=== PATIENT | male | born 1985 | race Caucasian/White ===

== ENCOUNTER 2019-08-25 14:27 | Emergency (ER) | payer BC, SELFPAY ==
[2019-08-25 14:57] VITALS: BP 139/91; PULSE 86; RESP 19; TEMP 36.8; O2SAT 98; BMI 24.9
--- NOTE | 2019-08-25 15:07 | HMH.EDUTC ---
[facility] [place]: Otitis media Qualifiers: Otitis media type: unspecified Laterality: left Qualified Code(s): H66.92 - Otitis media, unspecified, left ear Disposition: Home, Self-Care Condition on Discharge: Good Instructions: Middle Ear Infection, Middle Ear Infections (Alternative Therapy), Amoxicillin Additional Instructions: *Monitor Temp, Over the counter Motrin or Tylenol as directed/as needed Tylenol every 4 hours and Motrin every 6 hours (as long as your family doctor has told you that you can take it) for fever or pain. and straight to ER if unable to lower temp less than 101.0 after medication given Take medication as prescribed *Warm fluids like tea with honey may help to soothe the throat *Sleep elevated *Humidifier/Vaporizer Follow up with family doctor if no improvement or any worsening of symptoms Return if needed Follow up IMMEDIATELY for new or worsening symptoms or no Noticeable improvement over the next 48-72 hours. 911 for difficulty breathing or swallowing Prescriptions: Amoxicillin [Amoxicillin 500mg Cap] 500 mg PO TID #30 cap Transmission Status: Pending to [id number] Referrals: Provider,Referral, [Primary Care Provider] - As needed Forms: Work/School Release Medical Decision Making - Matthew Inquiry Pt receiving controlled substance: No Matthew was queried for this patient: No Vital Signs: 08/25/19 14:57 Temperature 98.2 F Temperature Source Oral Pulse Rate [Right Brachial] 86 Respiratory Rate 19 Blood Pressure [Right Arm] 139/91 H Blood Pressure Mean [Right Arm] 107 Blood Pressure Source [Right Arm] Automatic Cuff Blood Pressure Position [Right Arm] Sitting 02 Sat by Pulse Oximetry 98 - Reevaluation(s) Time: 15:10 Reevaluation #1: Patient states that he is allergic to Keflex but is able to take amoxicillin without reactions or complications [facility] [place] - General Stated complaint: vomiting and ear ACHE Time Seen by Provider: 08/25/19 15:07 Mode of Arrival: Ambulatory Source of Information: Patient Limitations: No Limitations Description of Symptoms (Recalled from Triage Doc. by RN): PATIENT C/O LEFT EAR HURTING AND VOMITING SINCE THIS MORNING HEENT Symptoms (Recalled from RN notes): Yes Resp Symptoms (Recalled from RN notes): No Skin Symptoms (Recalled from RN notes): No MS Symptoms (Recalled from RN notes): No Functional Status (Recalled from RN notes): WNL - History of Present Illness Provider Complaint: Patient states that he has been having pain in his left ear for about a week States that this morning he eat that made his stomach upset and he vomited and they sent him home from work State that his nausea is much better and not had any vomiting since the eppisode this morning but still having pain in his left ear - Related Data Previous Rx's Medication Instructions Recorded oseltamivir 75 mg capsule 75 mg PO DAILY 5 Days #5 cap 05/11/19 Amoxicillin [Amoxicillin 500mg 500 mg PO TID #30 cap 08/25/19 Cap] Allergies Allergy/AdvReac Type Severity Reaction Status Date / Time sulfamethoxazole Allergy Verified 05/11/19 12:08 [From Bactrim] trimethoprim [From Bactrim] Allergy Verified 05/11/19 12:08 From KEFLEX Allergy Mild I-RASH Uncoded 02/16/17 15:01 MORPHINE Allergy Unknown MAKES ME Uncoded 02/16/17 15:01 QUIT BREATHING - Worker's Comp Is this a Worker's Comp case?: No [facility] History - Hepatitis A Screen Drug use history?: No High risk sexual behaviors?: No History of sexually transmitted infection?: No Currently employed?: No Childcare worker?: No Do you have indoor plumbing?: Yes Do you have electricity?: Yes Attestation statement:: This patient has been screened for Hepatitis A risk factors. I have reviewed the patient's past medical history: Yes Other Medical History: Reports: Cataracts (right traumatic eye injury paintball accident age 22) Other Surgeries: Yes: No Previous
[2019-08-25 15:12] VITALS: BP 139/91; PULSE 86; RESP 19; TEMP 36.8; O2SAT 98
== END 2019-08-25 15:15 | disposition home or self-care (01) ==
PROVIDERS: Emergency Provider Nurse Practitioner
DX: H66.92 Otitis media, unspecified, left ear (principal); F17.210 Nicotine dependence, cigarettes, uncomplicated; Z88.2 Allergy status to sulfonamides
CPT/HCPCS: 99201

== ENCOUNTER 2019-11-28 10:09 | Emergency (ER) | payer BC, SELFPAY ==
[2019-11-28 10:39] VITALS: BP 135/85; PULSE 70; RESP 18; TEMP 36.6; O2SAT 98; BMI 29.0
--- NOTE | 2019-11-28 11:11 | HMH.EDUTC ---
[facility] [place]: Encounter for laboratory testing for COVID-19 virus Disposition: Home, Self-Care Condition on Discharge: Good Instructions: Preventing the Spread of Coronavirus Discharge Instructions Additional Instructions: You was tested for today for COVID19 your test result should be back within the next 2-4 hours, call back to the [facility] to see if your test results are back and the result You was given a handout with instructions for Self Quarantine and Self isolation for while you wait on test results and what to do if they are positive Return if needed Straight to ER if any life threatening symptoms Follow up as needed Referrals: PCP,No [Primary Care Provider] - As needed Forms: Work/School Release Time of Disposition: 11:17 Medical Decision Making - Matthew Inquiry Pt receiving controlled substance: No Matthew was queried for this patient: No Vital Signs: 11/28/19 10:39 Temperature 97.9 F Temperature Source Oral Pulse Rate [Right Brachial] 70 Respiratory Rate 18 Blood Pressure [Right Arm] 135/85 Blood Pressure Mean [Right Arm] 101 Blood Pressure Source [Right Arm] Automatic Cuff Blood Pressure Position [Right Arm] Sitting 02 Sat by Pulse Oximetry 98 Oxygen Delivery Method Room Air Orders (Tests/Meds): ORDERS Category Date Time Status Covid-19 Nasal PCR ([facility]) Routine Lab 11/28/19 10:20 [place] [facility] [place] - General Stated complaint: exposed to covid Time Seen by Provider: 11/28/19 11:11 Mode of Arrival: Ambulatory Source of Information: Patient Limitations: No Limitations Description of Symptoms (Recalled from Triage Doc. by RN): PATIENT NEEDING COVID TEST AFTER BEING EXPOSED LAST WEEK TO COWORKER WHO TESTED POSITIVE; DENIES SYMPTOMS HEENT Symptoms (Recalled from RN notes): No Resp Symptoms (Recalled from RN notes): No Skin Symptoms (Recalled from RN notes): No MS Symptoms (Recalled from RN notes): No Functional Status (Recalled from RN notes): WNL - History of Present Illness Provider Complaint: Patient states that he worked in close proxemity with an employee that tested positive for COVID 19 States that his employer wanted him to come and get checked for COVID Denies any symptoms - Related Data Previous Rx's Medication Instructions Recorded oseltamivir 75 mg capsule 75 mg PO DAILY 5 Days #5 cap 05/11/19 Amoxicillin [Amoxicillin 500mg 500 mg PO TID #30 cap 08/25/19 Cap] Allergies Allergy/AdvReac Type Severity Reaction Status Date / Time cephalexin [From Keflex] Allergy Verified 11/28/19 10:46 morphine Allergy Verified 11/28/19 10:46 sulfamethoxazole Allergy Verified 05/11/19 12:08 [From Bactrim] trimethoprim [From Bactrim] Allergy Verified 05/11/19 12:08 - Worker's Comp Is this a Worker's Comp case?: No [facility] History - Hepatitis A Screen Drug use history?: No High risk sexual behaviors?: No History of sexually transmitted infection?: No Currently employed?: No Childcare worker?: No Do you have indoor plumbing?: Yes Do you have electricity?: Yes Attestation statement:: This patient has been screened for Hepatitis A risk factors. I have reviewed the patient's past medical history: Yes Other Medical History: Reports: Cataracts (right traumatic eye injury paintball accident age 22) Other Surgeries: Yes: No Previous Surgery Amputation: No Fractures: No - Social History Smoking Status: Current every day smoker Tobacco Type: cigarettes # Packs/Day (cigarettes): 1 #Yrs smoked (if former smoker): 6 Alcohol Intake: never Alcohol Intake Frequency:: holidays/special occasions only Occupational Status: other Housing: house Household Members: spouse, family Family Hx:: Hypertension ROS Obtained: Yes All systems reviewed & no additional complaints, Yes Systems reviewed as appropriate & no additional complaints - Constitutional Constitutional: Reports system reviewed and no additional complaints, except as docu, Denies body ache
[2019-11-28 11:18] VITALS: BP 135/85; PULSE 70; RESP 18; TEMP 36.6; O2SAT 98
== END 2019-11-28 11:20 | disposition home or self-care (01) ==
PROVIDERS: Emergency Provider Nurse Practitioner
DX: Z20.828 Contact with and (suspected) exposure to other viral communicable diseases (principal); Z88.5 Allergy status to narcotic agent; Z88.2 Allergy status to sulfonamides; F17.210 Nicotine dependence, cigarettes, uncomplicated
CPT/HCPCS: 99201; U0003

== ENCOUNTER 2020-04-03 09:45 | Emergency (ER) | payer BC, SELFPAY ==
[2020-04-03 09:52] VITALS: BP 141/73; PULSE 71; RESP 16; TEMP 36.7; O2SAT 100; BMI 29.0
--- NOTE | 2020-04-03 10:08 | HMH.EDUTC ---
[facility] [place]: Exposure to COVID-19 virus Disposition: Home, Self-Care Condition on Discharge: Good Instructions: Preventing the Spread of Coronavirus Discharge Instructions Additional Instructions: Drink plenty of fluids. Take tylenol for pain or fever. Return if you begin to have difficulty breathing. Follow up with your regular doctor. GO TO THE ER FOR ANY WORSENING SYMPTOMS Referrals: PCP,No [Primary Care Provider] - Time of Disposition: 10:16 Medical Decision Making - Medical Records Medical records reviewed: No: I reviewed the patient's medical records. - Matthew Inquiry Pt receiving controlled substance: No Vital Signs: 04/03/20 09:52 04/03/20 10:26 Temperature 98.1 F 98.0 F Temperature Source Oral Oral Pulse Rate 77 Pulse Rate [Left] 71 Respiratory Rate 16 16 Blood Pressure 131/71 Blood Pressure [Right Arm] 141/73 H Blood Pressure Mean [Right Arm] 95 Blood Pressure Source Automatic Cuff Blood Pressure Source [Right Arm] Automatic Cuff Blood Pressure Position Supine Blood Pressure Position [Right Arm] Sitting 02 Sat by Pulse Oximetry 100 Oxygen Delivery Method Room Air Orders (Tests/Meds): ORDERS Category Date Time Status Covid-19 Nasal PCR ([facility]) Routine Lab 04/03/20 09:50 [place] [facility] - General Stated complaint: covid exposure Time Seen by Provider: 04/03/20 10:08 Mode of Arrival: Ambulatory Source of Information: Patient Limitations: No Limitations Description of Symptoms (Recalled from Triage Doc. by RN): pts was directly exposed to a covid positive pt on wednesday. the has been tested negative as of this time. pts only symptom is a runny nose. HEENT Symptoms (Recalled from RN notes): No Resp Symptoms (Recalled from RN notes): Yes (nasal drainage.) Skin Symptoms (Recalled from RN notes): No MS Symptoms (Recalled from RN notes): No Functional Status (Recalled from RN notes): na - History of Present Illness Provider Complaint: His currently is under quarentine for covid exposure. He needs to be tested for his work also. He denies any symptoms so far. - Related Data Previous Rx's Medication Instructions Recorded oseltamivir 75 mg capsule 75 mg PO DAILY 5 Days #5 cap 05/11/19 Amoxicillin [Amoxicillin 500mg 500 mg PO TID #30 cap 08/25/19 Cap] Allergies Allergy/AdvReac Type Severity Reaction Status Date / Time cephalexin [From Keflex] Allergy Verified 04/03/20 09:57 morphine Allergy Verified 04/03/20 09:57 sulfamethoxazole Allergy Verified 04/03/20 09:57 [From Bactrim] trimethoprim [From Bactrim] Allergy Verified 04/03/20 09:57 - Worker's Comp Is this a Worker's Comp case?: No H History - Hepatitis A Screen Drug use history?: No High risk sexual behaviors?: No History of sexually transmitted infection?: No Currently employed?: No Childcare worker?: No Do you have indoor plumbing?: Yes Do you have electricity?: Yes Attestation statement:: This patient has been screened for Hepatitis A risk factors. I have reviewed the patient's past medical history: Yes Other Medical History: Reports: Cataracts (right traumatic eye injury paintball accident age 22) Other Surgeries: Yes: No Previous Surgery Amputation: No Fractures: No - Social History Smoking Status: Current every day smoker Tobacco Type: cigarettes, smokeless tobacco # Packs/Day (cigarettes): 2 #Yrs smoked (if former smoker): 6 Alcohol Intake: never Alcohol Intake Frequency:: holidays/special occasions only Occupational Status: employed Housing: house Household Members: spouse, family Family Hx:: Hypertension ROS Obtained: Yes All systems reviewed & no additional complaints - Constitutional Constitutional: Reports system reviewed and no additional complaints, except as docu - Eyes Eyes: Reports system reviewed and no additional complaints, except as docu - ENT Ears, Nose, Mouth, and Throat: Reports
[2020-04-03 10:26] VITALS: BP 131/71; PULSE 77; RESP 16; TEMP 36.7
== END 2020-04-03 10:26 | disposition home or self-care (01) ==
PROVIDERS: Emergency Provider Nurse Practitioner Family
DX: Z20.822 Contact with and (suspected) exposure to COVID-19 (principal); R09.89 Other specified symptoms and signs involving the circulatory and respiratory systems
CPT/HCPCS: 99202; G0463; U0003

== ENCOUNTER 2020-11-09 09:40 | Emergency (ER) | payer BC, SELFPAY ==
[2020-11-09 10:19] VITALS: PULSE 68; RESP 18; TEMP 36.8; O2SAT 98; BMI 28.2
[2020-11-09 10:27] VITALS: BP 129/79; PULSE 68; RESP 16; TEMP 36.8
--- NOTE | 2020-11-09 10:41 | HMH.EDUTC ---
[facility] [place] Clinical Impression: Exposure to COVID-19 virus Disposition: Home, Self-Care Condition on Discharge: Good Instructions: DI for COVID-19 (Suspected or Confirmed ), Preventing the Spread of Coronavirus Discharge Instructions Additional Instructions: Drink plenty of fluids. Take tylenol for pain or fever. Return if you begin to have difficulty breathing. Follow up with your regular doctor. GO TO THE ER FOR ANY WORSENING SYMPTOMS Quarantine until you know the results of your covid-19 test. If it is positive, the health department should call you and give you further instructions about your length of Quarantine and other things. Notify your school or workplace of your results and follow their instructions regarding return to work/school. Referrals: Provider,Referral, [Primary Care Provider] - Time of Disposition: 10:42 Medical Decision Making - Medical Records Medical records reviewed: No: I reviewed the patient's medical records. - Matthew Inquiry Pt receiving controlled substance: No Vital Signs: 11/09/20 10:19 11/09/20 10:27 Temperature 98.2 F 98.2 F Temperature Source Oral Pulse Rate 68 Pulse Rate [Left] 68 Respiratory Rate 18 16 Blood Pressure 129/79 02 Sat by Pulse Oximetry 98 [facility] [place] HPI - General Stated complaint: covid test Time Seen by Provider: 11/09/20 10:41 Mode of Arrival: Ambulatory Source of Information: Patient Limitations: No Limitations Description of Symptoms (Recalled from Triage Doc. by RN): covid test. exposed. asymptomatic. HEENT Symptoms (Recalled from RN notes): No Resp Symptoms (Recalled from RN notes): No Skin Symptoms (Recalled from RN notes): No MS Symptoms (Recalled from RN notes): No Functional Status (Recalled from RN notes): na - History of Present Illness Provider Complaint: He states that he was exposed to covid-19 around 4 days ago. He denies symptoms so far. - Related Data Previous Rx's Medication Instructions Recorded oseltamivir 75 mg capsule 75 mg PO DAILY 5 Days #5 cap 05/11/19 Amoxicillin [Amoxicillin 500mg 500 mg PO TID #30 cap 08/25/19 Cap] Allergies Allergy/AdvReac Type Severity Reaction Status Date / Time cephalexin [From Keflex] Allergy Verified 04/03/20 09:57 morphine Allergy Verified 04/03/20 09:57 sulfamethoxazole Allergy Verified 02/03/21 09:57 [From Bactrim] trimethoprim [From Bactrim] Allergy Verified 04/03/20 09:57 - Worker's Comp Is this a Worker's Comp case?: No [facility] History - Hepatitis A Screen Drug use history?: No High risk sexual behaviors?: No History of sexually transmitted infection?: No Currently employed?: No Childcare worker?: No Do you have indoor plumbing?: Yes Do you have electricity?: Yes Attestation statement:: This patient has been screened for Hepatitis A risk factors. I have reviewed the patient's past medical history: Yes Other Medical History: Reports: Cataracts (right traumatic eye injury paintball accident age 22) Other Surgeries: Yes: No Previous Surgery Amputation: No Fractures: No - Social History Smoking Status: Current every day smoker Tobacco Type: cigarettes, smokeless tobacco # Packs/Day (cigarettes): 2 #Yrs smoked (if former smoker): 6 Alcohol Intake: never Alcohol Intake Frequency:: holidays/special occasions only Occupational Status: employed Housing: house Household Members: spouse, family Family Hx:: Hypertension ROS Obtained: Yes All systems reviewed & no additional complaints - Constitutional Constitutional: Reports system reviewed and no additional complaints, except as docu - Eyes Eyes: Reports system reviewed and no additional complaints, except as docu - ENT Ears, Nose, Mouth, and Throat: Reports system reviewed and no additional complaints, except as docu - Cardiovascular Cardiovascular: Reports system reviewed and no additional complaints, except as docu - Respiratory Respiratory: Reports syst
== END 2020-11-09 10:46 | disposition home or self-care (01) ==
PROVIDERS: Emergency Provider Nurse Practitioner Family
DX: Z20.822 Contact with and (suspected) exposure to COVID-19 (principal); F17.210 Nicotine dependence, cigarettes, uncomplicated
CPT/HCPCS: 99202; C9803; G0463; U0003; U0005

== ENCOUNTER 2021-04-07 14:57 | Emergency (ER) | payer BC, SELFPAY ==
[2021-04-07 16:30] VITALS: BP 127/94; PULSE 65; RESP 18; TEMP 37.2; O2SAT 97; BMI 26.6
--- NOTE | 2021-04-07 16:41 | HMH.EDUTC ---
[facility] [place] Clinical Impression: Viral syndrome Pharyngitis Qualifiers: Pharyngitis/tonsillitis etiology: unspecified etiology Qualified Code(s): J02.9 - Acute pharyngitis, unspecified Disposition: Home, Self-Care Condition on Discharge: Good Instructions: Strep Throat, DI for Pharyngitis/Tonsillopharyngitis -- Adult, Ondansetron, DI for COVID-19 (Suspected or Confirmed ), Preventing the Spread of Coronavirus Discharge Instructions Additional Instructions: Drink plenty of fluids. Take tylenol or ibuprofen for pain or fever. Take the medications as directed. Follow up with your regular doctor. GO TO THE ER FOR ANY WORSENING SYMPTOMS Quarantine until you know the results of your covid-19 test. Notify your school or workplace of your results and follow their instructions regarding return to work/school. The cough medication (promethazine dm) will make you drowsy, so don't drive or operate heavy machinery after taking it. Prescriptions: Brompheniramine/Pseudoephed/Dm [Bromfed Dm Cough Syrup] 5 ml PO Q6HP PRN #240 ml PRN Reason: Cough Transmission Status: Received by [facility] Ondansetron [Zofran 4mg ODT] 4 mg PO Q8HP PRN #20 tab PRN Reason: Nausea Transmission Status: Received by [facility] Amoxicillin/Potassium Clav [Augmentin 875-125 Tablet] 1 tab PO Q12H 10 Days #20 tab Transmission Status: Received by [facility] Referrals: Provider,Referral, MD [Primary Care Provider] - Forms: Work/School Release Time of Disposition: 17:28 Medical Decision Making - Medical Records Medical records reviewed: No: I reviewed the patient's medical records. - Matthew Inquiry Pt receiving controlled substance: No Vital Signs: 04/07/21 16:30 04/07/21 17:46 Temperature 98.9 F 98.9 F Temperature Source Oral Oral Pulse Rate 60 Pulse Rate [Apical] 65 Respiratory Rate 18 16 Blood Pressure 126/89 Blood Pressure [Right Arm] 127/94 H Blood Pressure Mean [Right Arm] 105 Blood Pressure Source Automatic Cuff Blood Pressure Source [Right Arm] Automatic Cuff Blood Pressure Position Sitting 02 Sat by Pulse Oximetry 97 Oxygen Delivery Method Room Air Room Air - Lab Data Lab results reviewed: Yes: I reviewed the patient's lab results. Lab Results 04/07/21 16:23: Group A Strep Rapid Negative Orders (Tests/Meds): ORDERS Category Date Time Status Covid-19 Nasal PCR ([facility]) Routine Lab 04/07/21 17:30 Received Strep Screen Confirmation Stat Micro 04/07/21 16:23 Received [facility] UTC HPI - General Stated complaint: sore throat,vomiting Time Seen by Provider: 04/07/21 16:41 Mode of Arrival: Ambulatory Source of Information: Patient Limitations: No Limitations Description of Symptoms (Recalled from Triage Doc. by RN): reports sore throating and vomiting started this AM HEENT Symptoms (Recalled from RN notes): Yes Resp Symptoms (Recalled from RN notes): No Skin Symptoms (Recalled from RN notes): No MS Symptoms (Recalled from RN notes): No Functional Status (Recalled from RN notes): n/a - History of Present Illness Provider Complaint: He states he has had a sore throat, chills, low grade fever, sinus congestion and a cough for the past 2 days. Today, he started having vomiting and GI upset. He has not been vaccinated against covid-19. - Related Data Previous Rx's Medication Instructions Recorded oseltamivir 75 mg capsule 75 mg PO DAILY 5 Days #5 cap 05/11/19 Amoxicillin [Amoxicillin 500mg 500 mg PO TID #30 cap 08/25/19 Cap] Amoxicillin/Potassium Clav 1 tab PO Q12H 10 Days #20 tab 04/07/21 [Augmentin 875-125 Tablet] Brompheniramine/Pseudoephed/Dm 5 ml PO Q6HP PRN #240 ml 04/07/21 [Bromfed Dm Cough Syrup] Ondansetron [Zofran 4mg ODT] 4 mg PO Q8HP PRN #20 tab 04/07/21 Allergies Allergy/AdvReac Type Severity Reaction Status Date / Time cephalexin [From Keflex] Allergy Verified 04/03/20 09:57 morphine Allergy Verified
[2021-04-07 17:10] LABS: Strep Scrn Group A (Rapid) Negative (Negative)
[2021-04-07 17:46] VITALS: BP 126/89; PULSE 60; RESP 16; TEMP 37.2; O2SAT 98
== END 2021-04-07 17:47 | disposition home or self-care (01) ==
PROVIDERS: Emergency Provider Nurse Practitioner Family
DX: J02.9 Acute pharyngitis, unspecified (principal); Z20.822 Contact with and (suspected) exposure to COVID-19
CPT/HCPCS: 87430; 99203; C9803; G0463; U0003; U0005

== ENCOUNTER 2021-10-21 16:56 | Emergency (ER) | payer BC, SELFPAY ==
--- NOTE | 2021-10-21 17:48 | HMH.EDUTC ---
[facility] [place]: Viral syndrome, Exposure to COVID-19 virus Disposition: Home, Self-Care Condition on Discharge: Good Instructions: DI for COVID-19 (Suspected or Confirmed ), Preventing the Spread of Coronavirus Discharge Instructions Additional Instructions: Drink plenty of fluids. Take tylenol or ibuprofen for pain or fever. Take the medications as directed. Follow up with your regular doctor. GO TO THE ER FOR ANY WORSENING SYMPTOMS Quarantine until you know the results of your covid-19 test. Notify your school or workplace of your results and follow their instructions regarding return to work/school. Prescriptions: Ondansetron [Zofran 4mg ODT] 4 mg PO Q8HP PRN #12 tab PRN Reason: Nausea Transmission Status: Received by [facility] Benzonatate [Benzonatate 100mg cap] 100 mg PO TIDP PRN #30 cap PRN Reason: Cough Transmission Status: Sent to [facility] Referrals: Provider,Referral, [Primary Care Provider] - Forms: Work/School Release Time of Disposition: 18:04 Medical Decision Making - Medical Records Medical records reviewed: No: I reviewed the patient's medical records. - Matthew Inquiry Pt receiving controlled substance: No - Lab Data Lab Results 10/21/21 17:42: Strep Scn Rapid Clinic Negative Orders (Tests/Meds): ORDERS Category Date Time Status Covid-19 Nasal PCR ([facility]) Routine Lab 10/21/21 17:41 Received Strep Screen Confirmation Stat Micro 10/21/21 17:42 [place] [facility] [place] - General Stated complaint: COUGH,sob,vOMITING,rUNNY nOSE Time Seen by Provider: 10/21/21 17:48 - History of Present Illness Provider Complaint: He states that for the past 1 day, he has had chills, body aches, n/v/d, and he has felt bad. He was exposed to covid-19 about 5 days ago. - Related Data Previous Rx's Medication Instructions Recorded oseltamivir 75 mg capsule 75 mg PO DAILY 5 Days #5 cap 05/11/19 Amoxicillin [Amoxicillin 500mg 500 mg PO TID #30 cap 08/25/19 Cap] Amoxicillin/Potassium Clav 1 tab PO Q12H 10 Days #20 tab 04/07/21 [Augmentin 875-125 Tablet] Brompheniramine/Pseudoephed/Dm 5 ml PO Q6HP PRN #240 ml 04/07/21 [Bromfed Dm Cough Syrup] Ondansetron [Zofran 4mg ODT] 4 mg PO Q8HP PRN #20 tab 04/07/21 Benzonatate [Benzonatate 100mg 100 mg PO TIDP PRN #30 cap 10/21/21 cap] Ondansetron [Zofran 4mg ODT] 4 mg PO Q8HP PRN #12 tab 10/21/21 Allergies Allergy/AdvReac Type Severity Reaction Status Date / Time cephalexin [From Keflex] Allergy Verified 04/03/20 09:57 morphine Allergy Verified 04/03/20 09:57 sulfamethoxazole Allergy Verified 04/03/20 09:57 [From Bactrim] trimethoprim [From Bactrim] Allergy Verified 04/03/20 09:57 [facility] History - Hepatitis A Screen Attestation statement:: This patient has been screened for Hepatitis A risk factors. I have reviewed the patient's past medical history: Yes Other Medical History: Reports: Cataracts (right traumatic eye injury paintball accident age 22) Other Surgeries: Yes: No Previous Surgery Amputation: No Fractures: No - Social History Smoking Status: Current every day smoker Tobacco Type: cigarettes, smokeless tobacco # Packs/Day (cigarettes): 2 #Yrs smoked (if former smoker): 6 Alcohol Intake: never Alcohol Intake Frequency:: holidays/special occasions only Occupational Status: employed Housing: house Household Members: spouse, family Family Hx:: Hypertension ROS Obtained: Yes All systems reviewed & no additional complaints - Constitutional Constitutional: Reports as per HPI - Eyes Eyes: Denies eye discharge - ENT Ears, Nose, Mouth, and Throat: Reports as per HPI - Cardiovascular Cardiovascular: Denies chest pain - Respiratory Respiratory: Denies chest congestion, Reports cough Physical Exam - General General appearance: alert, in no apparent distress - Head Head exam: atraumatic, normocephalic, no
[2021-10-21 17:59] VITALS: BP 109/77; PULSE 63; RESP 17; TEMP 37.4; O2SAT 99; BMI 27.4
[2021-10-21 18:00] LABS: UTC Strep Screen (Rapid) Negative (Negative)
[2021-10-21 18:16] VITALS: BP 109/77; PULSE 63; RESP 17; TEMP 37.4
== END 2021-10-21 18:17 | disposition home or self-care (01) ==
PROVIDERS: Emergency Provider Nurse Practitioner Family
DX: Z20.822 Contact with and (suspected) exposure to COVID-19 (principal); B34.9 Viral infection, unspecified
CPT/HCPCS: 87880; 99212; C9803; G0463; U0003; U0005

== ENCOUNTER 2022-12-09 13:20 | Emergency (ER) | payer SELFPAY ==
[2022-12-09 13:35] VITALS: BP 129/78; PULSE 114; RESP 18; TEMP 36.8; O2SAT 98; BMI 25.4
[2022-12-09 13:43] LABS: UTC Influenza A Antigen Negative (Negative); UTC Influenza B Antigen Negative (Negative)
--- NOTE | 2022-12-09 13:49 | EXP.UTC ---
Discharge Plan Disposition Patient Disposition: Home, Self-Care Condition: Good Prescriptions Prescriptions: New prednisone [prednisone] 20 mg tablet 20 mg PO BID Qty: 10 0RF Referrals Follow up/Referrals: Provider,Referral, MD [Primary Care Provider] - See instructions Activity Restrictions/Add. Instructions Additional Instructions/Restrictions: Start antibiotic today. Be sure to complete entire prescription even if feeling better Tylenol and ibuprofen as needed for pain or fever Humidifier/vaporizer/hot steamy shower Follow-up with primary care tomorrow. Follow-up immediately in the ER of the [facility] for new or worsening symptoms or no noticeable improvement over the next 48-72 hours. Stop smoking Inhaler every 4-6 hours as needed. Should help open airways improved cough, wheezing, shortness of breath Cristela Rendon will not cause drowsiness to use at bedtime to help stop cough so that she can get some sleep Start steroids today. Helps with inflammation therefore coughing and wheezing. Follow directions on package. Clinical Impressions Clinical Impression: Acute bronchitis Qualifiers: Bronchitis organism: unspecified organism Qualified Code(s): J20.9 - Acute bronchitis, unspecified Instructions Patient Instructions: Acute Bronchitis, DI for Acute Bronchitis Discharge ED Provider: Lona ([facility])Riley [facility] [place] HPI General Stated complaint: soa Mode of Arrival: Ambulatory Source of Information: Patient Limitations: No Limitations Time Seen by Provider: 12/09/22 13:49 Description of Symptoms (Recalled from Triage Doc. by RN): chest congestion, runny nose, and vomiting HEENT Symptoms (Recalled from RN notes): Yes Resp Symptoms (Recalled from RN notes): No Skin Symptoms (Recalled from RN notes): No MS Symptoms (Recalled from RN notes): No Functional Status (Recalled from RN notes): n/a History of Present Illness Provider Complaint: 37 yr old male presents for chest congestion,cough,runny nose and vomiting that started this am Related Data Previous Rx's Medication Instructions Recorded prednisone 20 mg tablet 20 mg PO BID #10 tabs 12/09/22 Allergies Allergy/AdvReac Type Severity Reaction Status Date / Time cephalexin [From Keflex] Allergy Verified 12/09/22 13:40 morphine Allergy Verified 12/09/22 13:40 sulfamethoxazole Allergy Verified 12/09/22 13:40 [From Bactrim] trimethoprim [From Bactrim] Allergy Verified 12/09/22 13:40 Worker's Comp Is this a Worker's Comp case?: No [facility] Disclaimer: The information contained in this section may have been updated after the patient was seen, as this information can be updated by other users. 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) Smoking Status: Current every day smoker tobacco type: cigarettes packs per day: 2 and smokeless tobacco second hand exposure: Yes alcohol intake: never current occupational status: employed Travel in the last 8 weeks: None household members: spouse and family housing: house ROS Obtained: Yes All systems reviewed & no additional complaints except as documented Constitutional Constitutional: Reports system reviewed and no additional complaints, except as documented and Reports as per HPI Eyes Eyes: Reports system reviewed and no additional complaints, except as documented ENT Ears, Nose, Mouth, and Throat: Reports system reviewed and no additional complaints, except as documented, Reports as per HPI and Reports nasal congestion Cardiovascular Cardiovascular: Reports system reviewed and no additional complaints, except as documented and Reports dyspnea Respiratory Respiratory: Reports system reviewed and no additional complaints, except as documented, Reports as per HPI, Reports chest congestion, Reports cough, Reports dyspnea and Reports wheezing Gastrointestinal Gastrointestingal: Reports system reviewed and no additional complaints, except as documented Integument
[2022-12-09 13:58] VITALS: BP 129/78; PULSE 114; RESP 18; TEMP 36.8; O2SAT 98
== END 2022-12-09 13:58 | disposition home or self-care (01) ==
PROVIDERS: Emergency Provider Nurse Practitioner Family
DX: J20.9 Acute bronchitis, unspecified (principal); R11.10 Vomiting, unspecified; F17.210 Nicotine dependence, cigarettes, uncomplicated
CPT/HCPCS: 87804; 99212; 99214; G0463

== ENCOUNTER 2023-02-11 13:59 | Emergency (ER) | payer SELFPAY ==
[2023-02-11 14:10] VITALS: BP 136/85; PULSE 61; RESP 22; TEMP 36.6; O2SAT 98; BMI 27.4
--- NOTE | 2023-02-11 14:27 | EXP.UTC ---
Discharge Plan Disposition Patient Disposition: Home, Self-Care Condition: Good Prescriptions Prescriptions: New azithromycin [Zithromax Z-Elias] 250 mg tablet See Rx Instructions .ROUTE .COMPLEX 5 Days Qty: 6 0RF Rx Instructions: For 250 mg dose pack: take 500 mg today (day 1), then 250 mg for 4 days (days 2-5) prednisone [prednisone] 20 mg tablet 20 mg PO BID 5 Days Qty: 10 0RF guaifenesin [Mucinex] 600 mg tablet extended release 12hr 1,200 mg PO BID PRN (Reason: cough) Qty: 20 0RF No Action prednisone [prednisone] 20 mg tablet 20 mg PO BID Qty: 10 0RF Referrals Follow up/Referrals: Provider,Referral, MD [Primary Care Provider] - See instructions Activity Restrictions/Add. Instructions Additional Instructions/Restrictions: *Monitor Temp, Over the counter Motrin or Tylenol as directed/as needed Tylenol every 4 hours and Motrin every 6 hours (as long as your family doctor has told you that you can take it) for fever or pain. and straight to ER if unable to lower temp less than 101.0 after medication given *Warm salt water gargles may help to soothe the throat *Throat Lozenges? *Warm fluids like tea with honey may help to soothe the throat? *Sleep elevated *Humidifier/Vaporizer *Take Follow up IMMEDIATELY for new or worsening symptoms or no Noticeable improvement over the next 48-72 hours. 911 for difficulty breathing or swallowing Clinical Impressions Clinical Impression: Bronchitis Sinusitis Qualifiers: Sinusitis location: unspecified location Chronicity: unspecified Qualified Code(s): J32.9 - Chronic sinusitis, unspecified Stand Alone Forms Stand Alone Forms: Work/School Release Instructions Patient Instructions: Sinusitis, DI for Sinusitis, Acute Bronchitis Discharge ED Provider: Nereida Hernandez [facility] General Stated complaint: congestion and cough Mode of Arrival: Ambulatory Source of Information: Patient Limitations: No Limitations Time Seen by Provider: 02/11/23 14:27 Description of Symptoms (Recalled from Triage Doc. by RN): PATIENT C/O SOA, COUGH AND CHEST CONGESTION X 2 WEEKS HEENT Symptoms (Recalled from RN notes): No Resp Symptoms (Recalled from RN notes): Yes Skin Symptoms (Recalled from RN notes): No MS Symptoms (Recalled from RN notes): No Functional Status (Recalled from RN notes): WNL History of Present Illness Provider Complaint: Patient states he has been sick for about 2 weeks having cough, chest congestion sinus pain and pressure and feeling like he has some SOA at times States that he was around someone with flu last week wanted to get tested for that also Related Data Previous Rx's Medication Instructions Recorded prednisone 20 mg tablet 20 mg PO BID #10 tabs 12/09/22 azithromycin 250 mg tablet See Rx Instructions PO .COMPLEX 5 02/11/23 (Zithromax Z-Elias) days #6 tabs guaifenesin 600 mg tablet, 1,200 mg PO BID PRN cough #20 tabs 02/11/23 extended release 12 hr (Mucinex) prednisone 20 mg tablet 20 mg PO BID 5 days #10 tabs 02/11/23 Allergies Allergy/AdvReac Type Severity Reaction Status Date / Time cephalexin [From Keflex] Allergy Verified 12/09/22 13:40 morphine Allergy Verified 12/09/22 13:40 sulfamethoxazole Allergy Verified 12/09/22 13:40 [From Bactrim] trimethoprim [From Bactrim] Allergy Verified 12/09/22 13:40 Worker's Comp Is this a Worker's Comp case?: No [facility] Disclaimer: The information contained in this section may have been updated after the patient was seen, as this information can be updated by other users. 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
[2023-02-11 14:31] LABS: UTC Influenza A Antigen Negative (Negative)
[2023-02-11 14:32] LABS: UTC Influenza B Antigen Negative (Negative)
[2023-02-11 14:41] VITALS: BP 136/85; PULSE 61; RESP 22; TEMP 36.6; O2SAT 98
== END 2023-02-11 14:45 | disposition home or self-care (01) ==
PROVIDERS: Emergency Provider Nurse Practitioner
DX: J01.90 Acute sinusitis, unspecified (principal); J20.9 Acute bronchitis, unspecified; R06.02 Shortness of breath; R05.9 Cough, unspecified; R09.81 Nasal congestion; R09.89 Other specified symptoms and signs involving the circulatory and respiratory systems; F17.210 Nicotine dependence, cigarettes, uncomplicated; Z20.828 Contact with and (suspected) exposure to other viral communicable diseases
CPT/HCPCS: 87804; 99212; 99214; G0463

== ENCOUNTER 2023-03-08 16:13 | Emergency (ER) | payer SELFPAY ==
[2023-03-08 17:00] VITALS: BP 125/75; PULSE 56; RESP 19; TEMP 36.9; O2SAT 96; BMI 27.4
--- NOTE | 2023-03-08 17:06 | EXP.UTC ---
Discharge Plan Disposition Patient Disposition: Home, Self-Care Condition: Good Prescriptions Prescriptions: New prednisone 10 mg tablet 10 mg PO DIRECTED 9 Days Qty: 21 0RF Rx Instructions: Take 4 tablets daily for 3 days, then take 2 tablets daily for 3 days, then take 1 tablet daily for 3 days, then stop. benzonatate [benzonatate] 100 mg capsule 100 mg PO TIDP PRN (Reason: Cough) Qty: 30 0RF amoxicillin-pot clavulanate 875-125 mg Tablet 1 tab PO Q12H Qty: 20 0RF Referrals Follow up/Referrals: Provider,Referral, MD [Primary Care Provider] - See instructions Activity Restrictions/Add. Instructions Additional Instructions/Restrictions: Drink plenty of fluids. Take tylenol or ibuprofen for pain or fever. Take the medications as directed. Follow up with your regular doctor. GO TO THE ER FOR ANY WORSENING SYMPTOMS Clinical Impressions Clinical Impression: Acute bronchitis, Sinusitis Stand Alone Forms Stand Alone Forms: Work/School Release Instructions Patient Instructions: DI for Sinusitis, DI for Acute Bronchitis Discharge ED Provider: Martell Monroe [facility] General Stated complaint: Cough,chest congestion Time Seen by Provider: 03/08/23 17:06 History of Present Illness Provider Complaint: He states that for the past 1 month he has had cough, chest congestion and sinus congestion. Related Data Previous Rx's Medication Instructions Recorded amoxicillin 875 mg-potassium 1 tab PO Q12H #20 tabs 03/08/23 clavulanate 125 mg tablet benzonatate 100 mg capsule 100 mg PO TIDP PRN Cough #30 caps 03/08/23 prednisone 10 mg tablet 10 mg PO DIRECTED 9 days #21 03/08/23 tabs Allergies Allergy/AdvReac Type Severity Reaction Status Date / Time cephalexin [From Keflex] Allergy Verified 03/08/23 17:21 morphine Allergy Verified 03/08/23 17:21 sulfamethoxazole Allergy Verified 03/08/23 17:21 [From Bactrim] trimethoprim [From Bactrim] Allergy Verified 03/08/23 17:21 [facility] Disclaimer: The information contained in this section may have been updated after the patient was seen, as this information can be updated by other users. Social History Smoking Status: Current every day smoker tobacco type: cigarettes packs per day: 2 and smokeless tobacco second hand exposure: Yes alcohol intake: never current occupational status: employed Travel in the last 8 weeks: None household members: spouse and family housing: house ROS Obtained: Yes All systems reviewed & no additional complaints except as documented Constitutional Constitutional: Reports poor appetite Eyes Eyes: Reports system reviewed and no additional complaints, except as documented ENT Ears, Nose, Mouth, and Throat: Reports as per HPI Cardiovascular Cardiovascular: Reports system reviewed and no additional complaints, except as documented and Denies chest pain Respiratory Respiratory: Denies shortness of breath, Reports chest congestion, Reports cough, Denies stridor and Denies wheezing Gastrointestinal Gastrointestingal: Reports system reviewed and no additional complaints, except as documented; Denies abdominal pain, diarrhea or vomiting Musculoskeletal Musculoskeletal: Reports system reviewed and no additional complaints, except as documented and Denies arthralgias Integumentary/Breasts Skin/Breast: Reports system reviewed and no additional complaints, except as documented and Denies rash Neurologic Neurologic: Denies paresthesias Allergic/Immunologic Allergic/Immunologic: Denies wheezing Physical Exam General General appearance: alert and in no apparent distress Eye Eye exam: Present normal appearance, PERRL and EOMI ENT ENT exam: Present mucous membranes moist and normal external ear exam Expanded ENT Exam External ear exam: Present normal external inspection TM/Canal exam: Bilateral TM: erythema and bulging Nose exam: Absent sinus tenderness Nasal speculum exam: Bilateral: normal Mouth exam: Present normal external inspection; Absent drooling Teeth exam: Present normal inspection Throat exam: Present tonsillar erythema and tonsillomegaly Neck Neck exam: Present normal inspection, full ROM and trachea midline; Absent tenderness, lymphadenopathy or thyromegaly Chest Chest inspection: Present normal inspection and symmetric chest wall rise; Absent tenderness or rash Respiratory Respiratory exam: Present normal lung sounds bilaterally; Absent respiratory distress, wheezes, stridor or accessory muscle use Cardiovascular Cardiovascular exam: Present regular rate, normal rhythm and normal heart sounds Abdominal Exam Abdominal exam: Present soft; Absent distention, tenderness, guarding, rebound or rigidity Extremities Exam Extremities exam: Present normal inspection, full ROM and normal capillary refill; Absent tenderness or calf tenderness Back Exam Back exam: Present normal inspection and full ROM; Absent tenderness Neurological Exam Neurological exam: Present alert and oriented X3 Psychiatric Psychiatric exam: Present normal affect and normal mood Skin Skin exam: Present warm, dry, intact and normal color Lymphatic Lymphatic Findings: no adenopathy Medical Decision Making Medical Records Medical records reviewed: No I reviewed the patient's medical records. Matthew Inquiry Pt receiving controlled substance: No Lab Data Lab results reviewed: Yes I reviewed the patient's lab results.
[2023-03-08 17:52] VITALS: BP 125/75; PULSE 56; RESP 18; TEMP 36.9; O2SAT 95
== END 2023-03-08 17:52 | disposition home or self-care (01) ==
PROVIDERS: Emergency Provider Nurse Practitioner Family
DX: J20.9 Acute bronchitis, unspecified (principal); J01.90 Acute sinusitis, unspecified; R05.9 Cough, unspecified; R09.81 Nasal congestion; R09.89 Other specified symptoms and signs involving the circulatory and respiratory systems; F17.210 Nicotine dependence, cigarettes, uncomplicated
CPT/HCPCS: 99212; 99214; G0463

== ENCOUNTER 2024-01-13 10:04 | Emergency (ER) | payer BC, SELFPAY ==
[2024-01-13 10:19] VITALS: BP 129/85; PULSE 62; RESP 18; TEMP 37; O2SAT 100; BMI 27.4
--- NOTE | 2024-01-13 10:22 | EXP.UTC ---
Discharge Plan Disposition Patient Disposition: Home, Self-Care Condition: Good Referrals Follow up/Referrals: Provider,Referral, MD [Primary Care Provider] - See instructions Activity Restrictions/Add. Instructions Additional Instructions/Restrictions: *Monitor Temp, Over the counter Motrin or Tylenol as directed/as needed Tylenol every 4 hours and Motrin every 6 hours (as long as your family doctor has told you that you can take it) for fever or pain. and straight to ER if unable to lower temp less than 101.0 after medication given *Warm salt water gargles may help to soothe the throat *Throat Lozenges? *Warm fluids like tea with honey may help to soothe the throat? *Sleep elevated *Humidifier/Vaporizer Follow up IMMEDIATELY for new or worsening symptoms or no Noticeable improvement over the next 48-72 hours. 911 for difficulty breathing or swallowing You were tested for today for Rapid Flu with COVID19 your test result should be back in the next 24 hours, you may check your results on the [facility] Clinical Impressions Clinical Impression: Viral syndrome Stand Alone Forms Stand Alone Forms: Work/School Release Instructions Patient Instructions: DI for Cough -- Adult, DI for Viral Syndrome, DI for Nasal Congestion Print Language Print Language: Montserratian Discharge ED Provider: Nereida Hernandez [facility] [place] H[place] General Stated complaint: vomiting, SOA, cough, chills Mode of Arrival: Ambulatory Source of Information: Patient Time Seen by Provider: 01/13/24 10:23 Description of Symptoms (Recalled from Triage Doc. by RN): N/V, COUGH AND CONGESTION, CHEST CONGESTION WITH DRAINAGE HEENT Symptoms (Recalled from RN notes): Yes Resp Symptoms (Recalled from RN notes): Yes Skin Symptoms (Recalled from RN notes): No MS Symptoms (Recalled from RN notes): No Functional Status (Recalled from RN notes): WNL History of Present Illness Provider Complaint: Patient states that he has been having sinus congestion and drianage and yesterday at work he had some vomiting, and felt a little SOA because his nose was all stopped up States he started feeling achy and having some chest congestion and over all not feeling well States today he was still not feeling well States COVID is going around at work and they wanted him to come in and get tested Related Data Allergies Allergy/AdvReac Type Severity Reaction Status Date / Time cephalexin (From Keflex) Allergy Verified 03/08/23 17:21 morphine Allergy Verified 03/08/23 17:21 sulfamethoxazole (From Allergy Verified 03/08/23 17:21 Bactrim) trimethoprim (From Bactrim) Allergy Verified 03/08/23 17:21 Worker's Comp Is this a Worker's Comp case?: No [facility] Disclaimer: The information contained in this section may have been updated after the patient was seen, as this information can be updated by other users. Social History Smoking Status: Current every day smoker tobacco type: cigarettes packs per day: 2 and smokeless tobacco second hand exposure: Yes alcohol intake: never current occupational status: employed Travel in the last 8 weeks: None household members: spouse and family housing: house ROS Obtained: Yes All systems reviewed & no additional complaints except as documented and Yes Systems reviewed as appropriate & no additional complaints except as documented Constitutional Constitutional: Reports system reviewed and no additional complaints, except as documented, Reports as per HPI, Reports body ache, Reports chills, Denies fever(s) and Denies headache(s) ENT Ears, Nose, Mouth, and Throat: Reports system reviewed and no additional complaints, except as documented, Reports as per HPI, Denies headache(s), Reports nasal congestion and Reports nasal discharge Cardiovascular Cardiovascular: Reports system reviewed and no additional complaints, except as documented and Reports as per HPI Respiratory Respiratory: Reports system reviewed and no additional complaints, except as documented, Reports as per HPI, Reports shortness of breath (yesterday on and off but couldnt breath out of his nose) and Reports cough Gastrointestinal Gastrointestingal: Reports system reviewed and no additional complaints, except as documented, as per HPI, nausea and vomiting (yesterday) Neurologic Neurologic: Denies headache(s) Physical Exam General General appearance: alert and in no apparent distress ENT ENT exam: Present mucous membranes moist Expanded ENT Exam Nose exam: Absent sinus tenderness Throat exam: Present normal inspection Chest Chest inspection: Present normal inspection and symmetric chest wall rise Respiratory Respiratory exam: Present normal lung sounds bilaterally; Absent respiratory distress or wheezes Cardiovascular Cardiovascular exam: Present regular rate, normal rhythm and normal heart sounds Abdominal Exam Abdominal exam: Present soft and normal bowel sounds; Absent distention or tenderness Neurological Exam Neurological exam: Present alert, oriented X3 and normal gait Medical Decision Making Medical Records Screening: Per USPSTF and CDC recommendations, given the prevalence of disease in our region, it is our hospital?s policy to screen for HIV and viral Hepatitis for all patients aged 18 and over and those with ongoing risk factors. Matthew Inquiry Pt receiving controlled substance: No Matthew was queried for this patient: No Vital Signs: 01/13/24 10:19 Temperature 98.6 F Temperature Source Oral Pulse Rate [Left Radial] 62 Respiratory Rate 18 Blood Pressure [Left Arm] 129/85 Blood Pressure Mean [Left Arm] 99 02 Sat by Pulse Oximetry 100 Orders (Tests/Meds): ORDERS Category Date Time Status Rapid PCR Covid and Flu A/B Stat Lab 01/13/24 10:22 Ordered
[2024-01-13 10:33] LABS: Coronavirus 19, PCR Not Detected (NotDetected); Influenza A, PCR Not Detected (NotDetected); Influenza B, PCR Not Detected (NotDetected)
[2024-01-13 10:34] VITALS: BP 129/85; PULSE 62; RESP 18; TEMP 37
== END 2024-01-13 10:37 | disposition home or self-care (01) ==
PROVIDERS: Emergency Provider Nurse Practitioner
DX: R05.9 Cough, unspecified (principal); B34.9 Viral infection, unspecified
CPT/HCPCS: 87636; 99213; G0381

== ENCOUNTER 2024-04-05 10:53 | Emergency (ER) | payer BC, SELFPAY ==
[2024-04-05 12:05] VITALS: BP 116/78; PULSE 102; RESP 18; TEMP 36.9; O2SAT 98; BMI 22.6
--- NOTE | 2024-04-05 12:15 | ED_ITS ---
Discharge Plan Disposition Patient Disposition: Home, Self-Care Condition: Good Prescriptions Prescriptions: New oseltamivir [Tamiflu] 75 mg capsule 75 mg PO Q12H 5 Days Qty: 10 0RF ondansetron 4 mg tablet,disintegrating 4 mg PO Q8H PRN (Reason: nausea and vomiting) Qty: 10 0RF Referrals Follow up/Referrals: Provider,Referral, MD [Primary Care Provider] - See instructions Activity Restrictions/Add. Instructions Additional Instructions/Restrictions: * Start Tamiflu today if you are going to take it. Discussed risk and possible benefits. * Lots of rest * Increase Fluids water, Gatorade, powerade, pedialyte,if infant/toddler/child * Alternate Tylenol and / or ibuprofen as discussed for fever, aches, chills Follow up IMMEDIATELY with your family doctor for new or worsening Symptoms OR no noticeable improvement over the next 48-72 hours, 911 for difficulty or breathing * You or your child area contagious until no fever, aches, chills for 24 hours with medication for symptoms * Help Prevent the spread of influenza: * ?Wash your hands often. Use soap and water. Wash your hands after you use the bathroom, change a child's diapers, or sneeze. Wash your hands before you prepare or eat food. Use gel hand cleanser that has 60% alcohol, when soap and water are not available. Do not touch your eyes, nose, or mouth unless you have washed your hands first. * Cover your mouth when you sneeze or cough. Cough into a tissue or the erin d of your arm. If you use a tissue, throw it away immediately and wash your hands. * Clean shared items with a germ-killing wafer cleaner. Clean table surfaces, doorknobs, and light switches. Do not share towels, silverware, and dishes with people who are sick. Wash bed sheets, towels, silverware, and dishes with soap and water. * Wear a mask over your mouth and nose if you are sick. The face mask may help protect others from becoming infected with the flu. Wear the mask when in common areas of your home or if you seek care with a healthcare provider. * Stay away from others if you are sick. Stay at home until 24 hours after your fever and symptoms are gone. Clinical Impressions Clinical Impression: Influenza Stand Alone Forms Stand Alone Forms: Work/School Release Instructions Patient Instructions: DI for Influenza -- Adult, Influenza, Oseltamivir Print Language Print Language: Taiwanese Discharge ED Provider: Nereida Hernandez [facility] General Stated complaint: cai vomiting diharrea fever flu exposure Mode of Arrival: Ambulatory Source of Information: Patient Limitations: No Limitations Time Seen by Provider: 04/05/24 12:15 Description of Symptoms (Recalled from Triage Doc. by RN): PATIENT C/O HEADACHE, VOMITING, COUGH AND SNEEZING SINCE YESTERDAY HEENT Symptoms (Recalled from RN notes): Yes Resp Symptoms (Recalled from RN notes): Yes Skin Symptoms (Recalled from RN notes): No MS Symptoms (Recalled from RN notes): No Functional Status (Recalled from RN notes): WNL History of Present Illness Provider Complaint: Patient states that he has been exposed to the flu and now he is having symptoms States that he has been having body aches, chills, sneezing sore scratchy throat headache and upset stomach Related Data Previous Rx's ?Medication ?Instructions ?Recorded ondansetron 4 mg disintegrating 4 mg PO Q8H PRN nausea and 04/05/24 tablet vomiting #10 tabs oseltamivir 75 mg capsule (Tamiflu) 75 mg PO Q12H 5 days #10 caps 04/05/24 Allergies Allergy/AdvReac Type Severity Reaction Status Date / Time cephalexin (From Keflex) Allergy Verified 03/08/23 17:21 morphine Allergy Verified 03/08/23 17:21 sulfamethoxazole (From Allergy Verified 03/08/23 17:21 Bactrim) trimethoprim (From Bactrim) Allergy Verified 03/08/23 17:21 Worker's Comp Is this a Worker's Comp case?: No [facility] Disclaimer: The information contained in this section may have been updated after the patient was seen, as this information can be updated by other users. Social History Smoking Status: Current every day smoker tobacco type: cigarettes packs per day: 2 and smokeless tobacco second hand exposure: Yes alcohol intake: never current occupational status: employed Travel in the last 8 weeks: None household members: spouse and family housing: house Have you lived/traveled outside [place] in past 30 days?: No Contact w/someone who lives/traveled outside [place] past 30 days?: No Exposure to someone with infectious disease in past 14 days?: Yes Do you have a fever (greater than 100.4 F or 38 C)?: No Have you tested positive for COVID-19: No Exposed to someone with COVID-19 in past 14 days?: No Do you have a sore throat?: No Do you have a cough?: No Do you have any weakness?: No Do you have any diarrhea?: Yes Are you experiencing any unusual bleeding?: No Do you have any muscle aches/pain?: No Do you have any abdominal pain?: No Are you experiencing loss of taste or smell?: No ROS Obtained: Yes All systems reviewed & no additional complaints except as documented and Yes Systems reviewed as appropriate & no additional complaints except as documented Constitutional Constitutional: Reports system reviewed and no additional complaints, except as documented, Reports as per HPI, Reports body ache, Reports chills, Reports fever(s) and Reports headache(s) ENT Ears, Nose, Mouth, and Throat: Reports system reviewed and no additional complaints, except as documented, Reports as per HPI, Reports headache(s) and Reports nasal congestion Cardiovascular Cardiovascular: Reports system reviewed and no additional complaints, except as documented and Reports as per HPI Respiratory Respiratory: Reports system reviewed and no additional complaints, except as documented and Reports as per HPI Gastrointestinal Gastrointestingal: Reports system reviewed and no additional complaints, except as documented, as per HPI, nausea and vomiting; Denies abdominal pain Neurologic Neurologic: Reports headache(s) Physical Exam General General appearance: alert and in no apparent distress ENT ENT exam: Present normal exam, normal oropharynx, mucous membranes moist and TM's normal bilaterally Respiratory Respiratory exam: Present normal lung sounds bilaterally; Absent respiratory distress or wheezes Cardiovascular Cardiovascular exam: Present regular rate, normal rhythm and normal heart sounds Abdominal Exam Abdominal exam: Present soft and normal bowel sounds; Absent distention or tenderness Neurological Exam Neurological exam: Present alert, oriented X3 and normal gait Medical Decision Making Medical Records Screening: Per USPSTF and CDC recommendations, given the prevalence of disease in our region, it is our hospital?s policy to screen for HIV and viral Hepatitis for all patients aged 18 and over and those with ongoing risk factors. Matthew Inquiry Pt receiving controlled substance: No Matthew was queried for this patient: No Vital Signs: 04/05/24 12:05 Temperature 98.5 F Temperature Source Oral Pulse Rate [Left Brachial] 102 H Respiratory Rate 18 Blood Pressure [Left Arm] 116/78 Blood Pressure Mean [Left Arm] 90 Blood Pressure Source [Left Arm] Automatic Cuff Blood Pressure Position [Left Arm] Sitting 02 Sat by Pulse Oximetry 98 Oxygen Delivery Method Room Air Lab Data Lab results reviewed: Yes I reviewed the patient's lab results.
[2024-04-05 12:17] LABS: UTC Influenza A Antigen Positive (Negative); UTC Influenza B Antigen Negative (Negative)
[2024-04-05 12:23] VITALS: BP 116/78; PULSE 102; RESP 18; TEMP 36.9; O2SAT 98
== END 2024-04-05 12:27 | disposition home or self-care (01) ==
PROVIDERS: Emergency Provider Nurse Practitioner
DX: J11.1 Influenza due to unidentified influenza virus with other respiratory manifestations (principal)
CPT/HCPCS: 87804; 99213; G0381

== ENCOUNTER 2024-05-23 08:39 | Emergency (ER) | payer BC, SELFPAY ==
[2024-05-23 08:46] VITALS: BP 121/84; PULSE 69; RESP 14; TEMP 36.8; O2SAT 98; BMI 26.6
--- NOTE | 2024-05-23 08:54 | HMH.EDGENADL ---
Discharge Plan Disposition Patient Disposition: Home, Self-Care Prescriptions Prescriptions: New doxycycline monohydrate 100 mg capsule 100 mg PO BID 10 Days Qty: 20 0RF No Action oseltamivir [Tamiflu] 75 mg capsule 75 mg PO Q12H 5 Days Qty: 10 0RF ondansetron 4 mg tablet,disintegrating 4 mg PO Q8H PRN (Reason: nausea and vomiting) Qty: 10 0RF Referrals Follow up/Referrals: Provider,Referral, MD [Primary Care Provider] - See instructions Activity Restrictions/Add. Instructions Additional Instructions/Restrictions: Call your family doctor to establish care for this visit to the emergency department and schedule follow-up within 48 hours to ensure improvement. If you have any worsening of your condition or any other concerning signs or symptoms, return to the emergency department or your primary care doctor for further evaluation. If you have redness spreading around the area after 48 hours, or you start to notice circular, target appearing rash anywhere else on your body, pick up operator doxycycline and take it for the full 10 days. Doxycycline can make you sensitive to sunlight, so stay out of the sun while you are taking this to prevent bad sunburns. Clinical Impressions Clinical Impression: Tick bite Instructions Patient Instructions: DI for Skin Abscess Print Language Print Language: Cymraes Discharge ED Provider: Jason Santana General Adult HPI General Chief complaint: Skin/Abscess/Foreign Body Stated complaint: insect bite on stomach, inflamation Time Seen by Provider: 05/23/24 08:53 Mode of Arrival: Ambulatory Source of Information: Patient Description of Symptoms (Recalled from ER Triage Doc. by RN): patient reports this morning he pulled off a tick on his left upper thigh near groin area History of Present Illness HPI narrative: Please note that above description of symptoms, in this electronic medical record under categorization of recalled from ER triage doctor by RN are reflective of an initial nursing assessment, however, is not reflective of my full history and physical exam that was personally taken and clarified. Consequentially, this preceding description of symptoms, which may include the patient's categorized chief complaint in the EMR, do not reflect my personal clinical impression, and the ultimate description of history of present illness and patient stated complaints should be deferred to this section of the note. Unless stated otherwise or congruent with this section of the note, additional signs, symptoms, or incongruence should be interpreted as inaccurate with my clinical impression. Related Data Previous Rx's ?Medication ?Instructions ?Recorded ondansetron 4 mg disintegrating 4 mg PO Q8H PRN nausea and 04/05/24 tablet vomiting #10 tabs oseltamivir 75 mg capsule (Tamiflu) 75 mg PO Q12H 5 days #10 caps 04/05/24 doxycycline monohydrate 100 mg 100 mg PO BID 10 days #20 caps 05/23/24 capsule Allergies Allergy/AdvReac Type Severity Reaction Status Date / Time cephalexin (From Keflex) Allergy Verified 03/08/23 17:21 morphine Allergy Verified 03/08/23 17:21 sulfamethoxazole (From Allergy Verified 03/08/23 17:21 Bactrim) trimethoprim (From Bactrim) Allergy Verified 03/08/23 17:21 PFSH PFS Disclaimer: The information contained in this section may have been updated after the patient was seen, as this information can be updated by other users. Social History Smoking Status: Current every day smoker tobacco type: cigarettes packs per day: 2 and smokeless tobacco second hand exposure: Yes alcohol intake: never current occupational status: employed Travel in the last 8 weeks: None household members: spouse and family housing: house Other Medical History Have you received the Flu Vaccine for this season: No Have you received the Pneumonia Vaccine: No ROS Obtained: Yes All systems reviewed & no additional complaints except as documented Physical Exam General General appearance: alert Head Head exam: atraumatic and normocephalic Eye Eye exam: Present normal appearance, PERRL and EOMI Neck Neck exam: Present normal inspection, full ROM and trachea midline Respiratory Respiratory exam: Absent respiratory distress, wheezes, stridor, accessory muscle use or prolonged expiratory phase Cardiovascular Cardiovascular exam: Present other (Pulses equal symmetric in upper and lower extremities) Abdominal Exam Abdominal exam: Present soft; Absent distention, tenderness or pulsatile mass Extremities Exam Extremities exam: Absent edema Neurological Exam Neurological exam: Present alert, oriented X3 and CN II-XII intact; Absent motor sensory deficit Skin Skin exam: Present warm, dry and other (Bug bite on left lower torso and inguinal fold where previously removed tick was); Absent diaphoresis or erythema Medical Decision Making Medical Records Medical records reviewed: Yes I reviewed the patient's medical records. Screening: Per USPSTF and CDC recommendations, given the prevalence of disease in our region, it is our hospital?s policy to screen for HIV and viral Hepatitis for all patients aged 18 and over and those with ongoing risk factors. Matthew Inquiry Pt receiving controlled substance: No Matthew was queried for this patient: No Vital Signs: 05/23/24 08:46 Temperature 98.2 F Temperature Source Oral Pulse Rate [Right] 69 Respiratory Rate 14 Blood Pressure [Right Arm] 121/84 Blood Pressure Mean [Right Arm] 96 Blood Pressure Source [Right Arm] Automatic Cuff Blood Pressure Position [Right Arm] Sitting 02 Sat by Pulse Oximetry 98 Oxygen Delivery Method Room Air Orders (Tests/Meds): ED MEDICATIONS Generic Name Dose Route Start Last Admin Trade Name Freq PRN Reason Stop Dose Admin Doxycycline Hyclate 200 mg 05/23/24 08:53 Doxycycline Hycl 100 Mg Tablet PO 05/23/24 08:54 ONCE ONE ORDERS Category Date Time Status HIV Combo Stat Lab 05/23/24 08:53 Ordered Hepatitis C Ab Qual. W/ RFX Stat Lab 05/23/24 08:53 Ordered Medical Decision Narrative: 38-year-old male presenting with tick bite. States that he noticed the tick in his left groin today, 05/23. Was not there yesterday, so has been there less than 24 hours. No fevers, chills, swelling in his groin, abdominal pain, vomiting, vision change, palpitations, etc. History obtained with patient. Patient states that he is no chronic medical conditions complicating this visit. On physical exam, patient very clinically well, nontachypneic, neuro intact and appropriate. He does have a 3 mm bug bite in his left groin around inguinal ligament. No surrounding or spreading erythema, no torsten purulence, clinic well-appearing. No lymphadenopathy. Differential includes bug bite, superficial, local reaction, early cellulitis, among others. Patient was given 200 mg doxycycline p.o. Labs including hematologic workup was considered, not deemed necessary. Patient very clinically well-appearing with tach less than 24 hours. Watch and wait prescription was sent to the pharmacy for 10 days of oral doxycycline in case he starts getting worsening cellulitic rash or what appears to be spreading rash consistent with erythema migrans, which was discussed with patient. He voiced his understanding. Because patient at baseline without signs or symptoms of clinical decompensation, deemed appropriate for discharge. I discussed my clinical impression with patient and answered all questions. At this time, the evidence for any other entities in the differential is insufficient to warrant any further testing or ED observation. This was explained as well. Advisory was given that persistent or worsening symptoms require further evaluation. I confirmed the understanding of this discussion. Brass Cutter disclaimer Much of this encounter note is an electronic manager program management spoken language to printed text. Electronic manager program management of the spoken language may permit errors. Although I have reviewed the note, some errors may still exist. Critical Care Critical Care Time Critical Care Time: No
[2024-05-23] MEDS: DOXYCYCLINE HYCL 100 MG TABLET 200 MG PO (08:56)
[2024-05-23 09:18] VITALS: BP 119/76; PULSE 66; RESP 15; TEMP 36.8; O2SAT 97
== END 2024-05-23 09:19 | disposition home or self-care (01) ==
PROVIDERS: Emergency Provider Emergency Medicine
DX: R19.09 Other intra-abdominal and pelvic swelling, mass and lump (principal); W57.XXXA Bitten or stung by nonvenomous insect and other nonvenomous arthropods, initial encounter; F17.210 Nicotine dependence, cigarettes, uncomplicated; F17.220 Nicotine dependence, chewing tobacco, uncomplicated; Z88.1 Allergy status to other antibiotic agents; Z88.5 Allergy status to narcotic agent
CPT/HCPCS: 99283

== ENCOUNTER 2024-09-06 19:03 | Emergency (ER) | payer BC, SELFPAY ==
[2024-09-06 19:19] VITALS: BP 122/81; PULSE 69; RESP 16; TEMP 37.1; O2SAT 97; BMI 25.0
[2024-09-06] MEDS: ONDANSETRON 4MG/2ML VIAL 4 MG IV (19:29)
[2024-09-06] MEDS: KETOROLAC 30MG/ML VIAL 15 MG IV (19:30)
[2024-09-06] MEDS: LACTATED RINGERS 1000ML 1,000 ML 999 ML IV (19:30)
[2024-09-06 19:33] LABS: Hematocrit 42.6 % (42.0-52.0); Hemoglobin 14.9 g/dL (14.1-18.0); Immature Granulocytes % 0.4 %; Mean Corpuscular HGB Conc 35.0 g/dL (31.8-35.4); Mean Corpuscular Hemoglobin 29.8 pg (27.0-31.2); Mean Corpuscular Volume 85.2 fl (80-94); Nucleated Red Blood Cells % 0 %; Platelet Count 250 K/mm3 (142-424); Red Blood Count 5.00 M/mm3 (4.60-6.20); Red Cell Distribution Width-SD 37.9 fL; White Blood Count 14.1 K/mm3 (4.8-10.8)
[2024-09-06 19:38] LABS: Albumin Level 4.6 g/dl (3.5-5.0); Chloride 102 mmol/L (98-107); Sodium 138 mmol/L (136-145)
[2024-09-06 19:39] LABS: Potassium 3.3 mmoL/L (3.5-5.1)
[2024-09-06 19:41] LABS: Alanine Aminotransferase 21 U/L (12-78); Albumin/Globulin Ratio 1.7 (1.1-1.8); Alkaline Phosphatase 67 U/L (38-126); Anion Gap 13.3 mEq/L (5-15); Aspartate Amino Transferase 23 U/L (17-59); Bilirubin,Total 0.5 mg/dl (0.2-1.3); Blood Urea Nitrogen 11 mg/dl (9-20); Carbon Dioxide 26 mmol/L (22.0-30.0); Creatinine Clearance Estimated 91 mL/min (50-200); Creatinine,Serum 1.10 mg/dl (0.66-1.25); Estimated Glomerular Filt Rate 75 ml/min (>60); GFR (African American) 91 ML/MIN (>60); Globulin 2.7 g/dL (1.3-3.2); Lipase 243 U/L (23-300); Total Protein,Serum 7.3 g/dl (6.3-8.2)
--- NOTE | 2024-09-06 19:41 | ECG_ITS ---
APPROVED REPORT Exam: Resting ECG HR:60 bpm ECG Measurements Heart Rate 60 AXES CA 182 P 56 QRSd 94 QRS 24 QT 397 T 39 QTc 398 Conclusion SINUS RHYTHM NORMAL ECG UNCONFIRMED REPORT Normal sinus rhythm. No ST elevation or depression. QTc normal at 398. Electronically signed by : DIALLO MARTINEZ, 09/06/2024 22:43:12
[2024-09-06 19:42] LABS: Calcium 9.5 mg/dl (8.4-10.2); Glucose 102 mg/dl (74-100)
[2024-09-06 19:45] LABS: Lactate Venous 2.0 mmol/L (0.4-2.0); VBG HCO3 21.6 mmol/L (23-30); VBG PCO2 40.6 mmol/L (35-51); VBG PH 7.34 mmol/L (7.31-7.41); VBG PO2 103.6 mmol/L (28-40)
--- NOTE | 2024-09-06 19:45 | ED_ITS ---
Discharge Plan Disposition Patient Disposition: Home, Self-Care Prescriptions Prescriptions: New ondansetron 4 mg tablet,disintegrating 4 mg PO Q6H PRN (Reason: nausea and vomiting) 4 Days Qty: 16 0RF No Action oseltamivir [Tamiflu] 75 mg capsule 75 mg PO Q12H 5 Days Qty: 10 0RF ondansetron 4 mg tablet,disintegrating 4 mg PO Q8H PRN (Reason: nausea and vomiting) Qty: 10 0RF doxycycline monohydrate 100 mg capsule 100 mg PO BID 10 Days Qty: 20 0RF Referrals Follow up/Referrals: Provider,Referral, MD [Primary Care Provider, Medical] - See instructions Activity Restrictions/Add. Instructions Additional Instructions/Restrictions: You can take Zofran to help with nausea and vomiting. Be sure to drink plenty of fluids to stay hydrated, including water, sugar-free Gatorade, Pedialyte. Follow-up with your primary care physician as needed. If you develop any new or worsening symptoms, or if you become concerned for your health for any reason, return to the emergency department for evaluation. Clinical Impressions Clinical Impression: Nausea vomiting and diarrhea, Abdominal pain, LUQ Instructions Patient Instructions: DI for Nausea -- Adult, DI for Nausea -- Child Print Language Print Language: Bel[place]ian Discharge ED Provider: Emil Pratt Adult HPI General Chief complaint: Nausea/Vomiting/Diarrhea Stated complaint: V/D Time Seen by Provider: 09/06/24 19:13 Mode of Arrival: Ambulatory Source of Information: Patient Description of Symptoms (Recalled from ER Triage Doc. by RN): Pt present with complaints of nausea, vomiting and diarrhea that began this morning shortly after arriving to work. He reports approx 10 episodes of both vomiting and diarrhea throughout the day and feels very weak at this time. Stomach tenderness and cramping rates 3/10 pain. Denies any fever, SOA, CP, UA symptoms. History of Present Illness HPI narrative: Khadar Boothe is a 38-year-old male with past medical history of tobacco use but otherwise no significant past medical history who presents to the emergency department for complaints of nausea, vomiting and diarrhea as well as cramping abdominal pain. Patient states that he was feeling normal yesterday and today has had 10 episodes of nonbloody vomiting and diarrhea. He states that during these episodes, he has cramping mid abdominal pain. He denies any previous abdominal surgeries. He denies any dysuria or hematuria. He denies any chest pain or shortness of breath. He has not had any fevers and has no known sick contacts. Related Data Previous Rx's ?Medication ?Instructions ?Recorded ondansetron 4 mg disintegrating 4 mg PO Q8H PRN nausea and 04/05/24 tablet vomiting #10 tabs oseltamivir 75 mg capsule (Tamiflu) 75 mg PO Q12H 5 da ys #10 caps 04/05/24 doxycycline monohydrate 100 mg 100 mg PO BID 10 days # 20 caps 05/23/24 capsule ondansetron 4 mg disintegrating 4 mg PO Q6H PRN nausea and 09/06/24 tablet vomiting 4 days #16 tabs Allergies Allergy/AdvReac Type Severity Reaction Status Date / Time cephalexin (From Keflex) Allergy Hives Verified 05/23/24 09:04 morphine Allergy Hives Verified 05/23/24 09:04 sulfamethoxazole (From Allergy Hives Verified 05/23/24 09:04 Bactrim) trimethoprim (From Bactrim) Allergy Hives Verified 05/23/24 09:04 [facility] Disclaimer: The information contained in this section may have been updated after the patient was seen, as this information can be updated by other users. Social History Smoking Status: Current every day smoker tobacco type: cigarettes packs per day: 2 and smokeless tobacco second hand exposure: Yes alcohol intake: never current occupational status: employed Travel in the last 8 weeks?: None household members: spouse and family housing: house Have you lived/traveled outside [place] in past 30 days?: No Contact w/someone who lives/traveled outside [place] past 30 days?: No Exposure to someone with infectious disease in past 14 days?: No Do you have a fever (greater than 100.4 F or 38 C)?: No Have you tested positive for COVID-19?: No Exposed to someone with COVID-19 in past 14 days?: No Do you have a sore throat?: No Do you have a cough?: No Do you have any weakness?: No Do you have any diarrhea?: No Are you experiencing any unusual bleeding?: No Do you have any muscle aches/pain?: No Do you have any abdominal pain?: No Are you experiencing loss of taste or smell?: No Other Medical History Have you received the Flu Vaccine for this season: No Have you received the Pneumonia Vaccine: No ROS Obtained: Yes Systems reviewed as appropriate & no additional complaints except as documented Physical Exam General General appearance: alert and in no apparent distress Head Head exam: atraumatic Eye Eye exam: Present normal appearance ENT ENT exam: Present normal external ear exam Neck Neck exam: Present full ROM Chest Chest inspection: Present symmetric chest wall rise Respiratory Respiratory exam: Present normal lung sounds bilaterally; Absent respiratory distress Cardiovascular Cardiovascular exam: Present regular rate and normal rhythm Abdominal Exam Abdominal exam: Present soft and tenderness (mild LUQ and epigastric tenderness); Absent distention or guarding exam: Present deferred Extremities Exam Extremities exam: Present normal inspection Back Exam Back exam: Present normal inspection Neurological Exam Neurological exam: Present alert and oriented X3 Psychiatric Psychiatric exam: Present normal affect Skin Skin exam: Present warm and dry Medical Decision Making Medical Records Screening: Per USPSTF and CDC recommendations, given the prevalence of disease in our region, it is our hospital?s policy to screen for HIV and viral Hepatitis for all patients aged 18 and over and those with ongoing risk factors. Matthew Inquiry Pt receiving controlled substance: No Vital Signs: 09/06/24 19:19 Temperature 98.8 F Temperature Source Oral Pulse Rate [Left] 69 Respiratory Rate 16 Blood Pressure [Right Arm] 122/81 Blood Pressure Mean [Right Arm] 94 Blood Pressure Source [Right Arm] Automatic Cuff Blood Pressure Position [Right Arm] Sitting 02 Sat by Pulse Oximetry 97 Oxygen Delivery Method Room Air Lab Data Lab Results 09/06/24 19:19: VBG pH 7.34, VBG pCO2 40.6, VBG pO2 103.6 H, VBG HCO3 21.6 L, V BG Total CO2 22.8 L, VBG O2 Saturation 97.6 H, VBG Base Excess -4.2 L, VBG Lactic Acid 2.0 09/06/24 19:25: WBC 14.1 H, RBC 5.00, Hgb 14.9, Hct 42.6, MCV 85.2, MCH 29.8, MCHC 35.0, RDW 12.2, Plt Count 250, MPV 10.0, Neut % (Auto) 58.7, Lymph % (Auto) 30.6, [place] % (Auto) 8.4, Eos % (Auto) 1.5, Baso % (Auto) 0.4, Neut # (Auto) 8.3 H, Lymph # (Auto) 4.3, [place] # (Auto) 1.2 H, Eos # (Auto) 0.2, Baso # (Auto) 0.1, Sodium 138, Potassium 3.3 L, Chloride 102, Carbon Dioxide 26, Anion Gap 13.3, BUN 11, Creatinine 1.10, Estimated Creat Clear 91, Estimated GFR 75, Est GFR ( Amer) 91, Glucose 102 H, Calcium 9.5, Total Bilirubin 0.5, AST 23, ALT 21, Alkaline Phosphatase 67, Total Protein 7.3, Albumin 4.6, Globulin 2.7, Albumin/Globulin Ratio 1.7, Lipase 243 09/06/24 19:25 09/06/24 19:25 Orders (Tests/Meds): ED MEDICATIONS Discontinued Medications Generic Name Dose Route Start Last Admin Trade Name Freq PRN Reason Stop Dose Admin Lactated Ringer's 1,000 mls @ 999 mls/hr 09/06/24 19:19 09/06/24 19:30 Lactated Ringer's 1000 Ml Bag IV 09/06/24 20:19 999 mls/hr .Q1H1M ONE Administration Ketorolac Tromethamine 15 mg 09/06/24 19:19 09/06/24 19:30 Ketorolac 30mg/Ml Vial IV 09/06/24 19:20 15 mg ONCE ONE Administration Ondansetron HCl 4 mg 09/06/24 19:19 09/06/24 19:29 Ondansetron 4mg/2ml Vial IV 09/06/24 19:20 4 mg ONCE ONE Administration ORDERS Category Date Time Status CBC w/Auto Diff [Complete Blood Count Auto Diff] Stat Lab 09/06/24 19:25 Completed CMP [Comprehensive Metabolic Panel] Stat Lab 09/06/24 19:25 Completed Lipase Stat Lab 09/06/24 19:25 Completed VBG [Venous Blood Gas] Stat RT 09/06/24 19:19 Completed Medical Decision Narrative: Khadar Boothe is a 38-year-old male with past medical history of tobacco use but otherwise no significant past medical history who presents to the emergency department for complaints of nausea, vomiting and diarrhea as well as cramping abdominal pain. Patient states that he was feeling normal yesterday and today has had 10 episodes of nonbloody vomiting and diarrhea. He states that during these episodes, he has cramping mid abdominal pain. He denies any previous abdominal surgeries. He denies any dysuria or hematuria. He denies any chest pain or shortness of breath. He has not had any fevers and has no known sick contacts. On arrival, patient is normotensive, heart rate within normal limits, afebrile, breathing comfortably room air with oxygen saturation 97% SpO2. Physical exam, stated above, revealed overall well-appearing male in no distress. Cardiopulmonary exam is unremarkable. He appears well-hydrated. He has mild left upper quadrant and even milder epigastric abdominal tenderness with palpation without guarding or rebound. Abdomen is nonperitoneal take. Differential diagnosis includes, but is not limited to: Viral gastroenteritis, acute pancreatitis, peptic ulcer disease, dehydration, MARIANO, among others. The most morbid conditions were considered and workup was based on these. Workup in the emergency department included: CBC, CMP, lipase, EKG, VBG with lactate. Patient was treated with 1 L lactated ringer, 4 mg IV Zofran as well as [address] abdomen pelvis with IV contrast was considered, however given patient does not have any significant tenderness on exam, appears well- hydrated with reassuring vital signs, it is felt that the radiation exposure outweighs potential benefits at this time and was deferred. Will follow-up laboratory results. Laboratory results interpreted by me personally. Leukocytosis with white blood cell count of 14.1 but no neutrophilia. VBG unremarkable with normal lactate. Mildly low potassium at 3.3 but CMP otherwise unremarkable nonactionable with normal liver enzymes. Lipase normal at 243. Glucose normal at 102. On reassessment, patient reports significant improvement in his nausea and has not had any additional vomiting here. Abdominal pain has subsided. Patient does have a leukocytosis, however has no other concern for sepsis given his vital signs, normal lactate and benign physical exam. Is felt that he is appropriate for discharge at this time with Zofran for symptomatic control. Encouraged him to drink plenty of water, sugar-free Gatorade and Pedialyte to stay hydrated. Encouraged him to follow-up with his primary care physician. Return precautions were given. All questions were answered. He demonstrated understanding and was in agreement this plan. He was then discharged from the emergency department in stable condition Critical Care Critical Care Time Critical Care Time: No
[2024-09-06 20:52] VITALS: BP 118/83; PULSE 58; RESP 16; TEMP 36.9; O2SAT 99
== END 2024-09-06 21:00 | disposition home or self-care (01) ==
PROVIDERS: Emergency Provider Student in an Organized Health Care Education/Training Program
DX: R10.12 Left upper quadrant pain (principal); R11.2 Nausea with vomiting, unspecified; E87.6 Hypokalemia; R19.7 Diarrhea, unspecified; F17.210 Nicotine dependence, cigarettes, uncomplicated
CPT/HCPCS: 80053; 82803; 83690; 85025; 93005; 96361; 96374; 96375; 99285; J1885; J2405; J7120

== ENCOUNTER 2024-12-10 18:39 | Outpatient (CLI) | payer SELFPAY ==
[2024-12-10 22:55] LABS: Coronavirus 19, PCR Not Detected (NotDetected); Influenza A, PCR Not Detected (NotDetected); Influenza B, PCR Not Detected (NotDetected)
== END 2024-12-10 23:59 ==
LOC: LAB.DROPOF 12-11 11:40
PROVIDERS: PCP Nurse Practitioner; Visit Provider Nurse Practitioner
DX: J06.9 Acute upper respiratory infection, unspecified (principal)
CPT/HCPCS: 87631